=== PATIENT | male | born 1965 | race Caucasian/White ===

== ENCOUNTER 2017-06-24 20:25 | Emergency (ER) | payer MEDICAID ==
[~2017-06-24] VITALS: Ht 160 cm; Wt 65.3 kg
[2017-06-24 20:30] VITALS: Ht 160 cm; Wt 65.3 kg
[2017-06-24 23:45] VITALS: BP 100/65
== END 2017-06-24 23:45 | disposition home or self-care (01) ==
LOC: ED 20:25
DX: B34.9 Viral infection, unspecified (principal); E11.9 Type 2 diabetes mellitus without complications; J45.909 Unspecified asthma, uncomplicated; Z91.14 Patient's other noncompliance with medication regimen
CPT/HCPCS: 82962; 87804; J1885